=== PATIENT | female | born 1990 | race African-American/Black ===

== ENCOUNTER 2017-05-19 16:35 | Emergency (ER) | payer OTHER ==
[~2017-05-19] VITALS: Ht 162.6 cm; Wt 51.3 kg
[2017-05-19 17:22] VITALS: BP 116/79
--- NOTE | 2017-05-19 22:29 | Emergency Room Report ---
History of Present Illness General Chief Complaint: Complications Source: Patient Present Illness HPI The patient is a 26 [id number] female at 32 weeks gestation presenting for pelvic cramping and a feeling of fullness. The patient states that she first felt cramping 5 days prior which has been increasing in frequency. Cramping is now approximately 20 minutes apart. She also has a feeling of pelvic fullness. She denies any vaginal bleeding. She denies other symptoms including nausea, vomiting, headache, dizziness, blurred vision, swelling of extremities, back pain, fever, chills Allergies: Coded Allergies: No Known Allergies (Unverified , 05/19/17) Patient History Past Medical History: see triage record Pertinent Family History: none Last Menstrual Period: 10/03/2016 Now: Yes : 2 Para: 1 Reviewed Nursing Documentation: PMH: Agreed, PSxH: Agreed Nursing Documentation-PMH Past Medical History: No Stated History Review of Systems All Other Systems: negative except mentioned in HPI Physical Exam Vital Signs Date Time Temp Pulse Resp B/P Pulse Ox O2 Delivery O2 Flow Rate FiO2 05/19/17 16:49 98.1 96 16 116/79 99 Room Air Sp02 EP Interpretation: reviewed, normal General Appearance: no apparent distress, alert, GCS 15, non-toxic Head: normocephalic, atraumatic Eyes: bilateral eye PERRL, bilateral eye normal inspection ENT: hearing grossly normal, normal pharynx, no angioedema, normal voice Gastrointestinal: normal bowel sounds, non tender, soft, no guarding, no rebound Genitourinary: normal inspection, no CVA tenderness Musculoskeletal: back normal, gait/station normal, normal range of motion, non- tender Neurologic: alert, oriented x3, responsive, motor strength/tone normal, sensory intact, speech normal Psychiatric: judgement/insight normal, memory normal, mood/affect normal, no suicidal/homicidal ideation Skin: normal color, no rash, warm/dry, well hydrated Lymphatic: no adenopathy Medical Decision Making PA Attestation Dr. Burgos is my supervising physician. Patient management was discussed with my supervising physician Diagnostic Impression: Primary Impression: Uterine contractions during ER Course The patient is a 26 [id number] female at 32 weeks gestation presenting for pelvic cramping Differential diagnoses considered include but not limited to threatened , UTI, BV, STD, pre-term , among others PE: vitals WNL. NAD Abdomen is soft and nontender The patient was informed that we do not have the labor and delivery unit. She states that she will leave AMA and go to a hospital that does. She was informed of the dangers of leaving the emergency department. She understands. ER precautions given Last Vital Signs Date Time Temp Pulse Resp B/P Pulse Ox O2 Delivery O2 Flow Rate FiO2 05/19/17 17:22 98.1 16 116/79 99 Room Air 05/19/17 16:49 96 Status: improved Disposition: AGAINST MEDICAL ADVICE Condition: Stable Referrals: NOT CHOSEN IPA/MD,REFERRING (PCP) Patient Instructions: Abdominal Pain During Additional Instructions: The patient has decided to go to another hospital that has labor and delivery unit. She understands the risks associated with leaving. DANIELLE WELCH May 19, 2017 22:29
== END 2017-05-19 17:20 | disposition left against medical advice (07) ==
LOC: EMR 17:20
DX: O26.893 Other specified pregnancy related conditions, third trimester (principal); N85.8 Other specified noninflammatory disorders of uterus; Z3A.32 32 weeks gestation of pregnancy
CPT/HCPCS: 99282